=== PATIENT | female | born 2000 | race Caucasian/White ===

== ENCOUNTER 2021-11-13 03:04 | Emergency (ER) | payer MEDICAID ==
[2021-11-13] MEDS ORDERED: Lidocaine 1% 20 ML MDV INJECT ONE (03:17)
[2021-11-13] MEDS ORDERED: Bacitracin Oint 1 GM U/D Packet TOP ONE (03:18)
[2021-11-13] MEDS ORDERED: Diphtheria,Pertussis(Acell),Tetanus Vaccine 0.5 ML Syringe IM ONE (03:24)
== END 2021-11-13 04:03 | disposition home or self-care (01) ==
LOC: JP.ED 03:04
DX: S91.312A Laceration without foreign body, left foot, initial encounter (principal); Z88.5 Allergy status to narcotic agent; Z79.899 Other long term (current) drug therapy; Z23 Encounter for immunization; W45.8XXA Other foreign body or object entering through skin, initial encounter
CPT/HCPCS: 12004; 12042; 90471; 90715; 99281; 99282-25

== ENCOUNTER 2024-09-14 14:21 | Emergency (ER) | payer MEDICAID ==
[2024-09-14 14:51] LABS: STREP A BY PCR DETECTED (NOT DETECT)
[2024-09-14 15:08] LABS: CORONAVIRUS COVID-19 NAA NEGATIVE (NEGATIVE); INFLUENZA A NAA NEGATIVE (NEGATIVE); INFLUENZA B NAA NEGATIVE (NEGATIVE); RESPIRATORY SYNCYTIAL VIR NAA NEGATIVE (NEGATIVE)
[2024-09-14] MEDS: Ketorolac 30 MG/ML SDV IM ONE (15:12)
== END 2024-09-14 15:36 | disposition home or self-care (01) ==
LOC: JP.ED 14:21
DX: J02.0 Streptococcal pharyngitis (principal); Z88.5 Allergy status to narcotic agent
CPT/HCPCS: 0241U; 87651; 96372; 99283; J1885

== ENCOUNTER 2024-12-02 12:38 | Emergency (ER) | payer BC ==
[2024-12-02] MEDS ORDERED: Sodium Chloride 0.9% 10 ML Syringe FLUSH PRN (13:14)
[2024-12-02] MEDS: Prochlorperazine 10 MG/2 ML SDV IVPUSH ONE (13:31)
[2024-12-02] MEDS: Ketorolac 30 MG/ML SDV IVPUSH ONE (13:33)
[2024-12-02] MEDS: diphenhydrAMINE 50 MG/ML SDV IVPUSH ONE (13:34)
[2024-12-02] MEDS: Sodium Chloride 0.9% 1,000 ML IV SCH (13:34)
== END 2024-12-02 16:40 | disposition home or self-care (01) ==
LOC: JP.ED 12:38
DX: R51.9 Headache, unspecified (principal); Z88.5 Allergy status to narcotic agent; Z86.16 Personal history of COVID-19
CPT/HCPCS: 96361; 96374; 96375; 99283; J0780; J1200; J1885; J7030